=== PATIENT | female | born 1985 | race Caucasian/White ===

== ENCOUNTER 2019-12-06 06:13 | Emergency (ER) | payer SELFPAY ==
[2019-12-06] MEDS ORDERED: Acetaminophen/Codeine 30-300mg Tablet ONE (07:49)
[2019-12-06] MEDS ORDERED: Neomycin/Polymyxin/HC Otic Solution 10 ML BOT ONE (07:52)
== END 2019-12-06 07:58 | disposition home or self-care (01) ==
LOC: ERS 06:13
DX: H60.91 Unspecified otitis externa, right ear (principal); F17.200 Nicotine dependence, unspecified, uncomplicated; D64.9 Anemia, unspecified
CPT/HCPCS: 99283

== ENCOUNTER 2019-12-06 16:37 | Emergency (ER) | payer SELFPAY ==
[2019-12-06] MEDS ORDERED: methylPREDNISolone Sod Succ/PF 125 MG/2 ML VIAL ONE (16:54)
[2019-12-06] MEDS ORDERED: Famotidine/PF 20 mg/2ml Vial ONE (16:54)
== END 2019-12-06 19:05 | disposition home or self-care (01) ==
LOC: ERS 16:37
DX: L50.0 Allergic urticaria (principal); T36.8X5A Adverse effect of other systemic antibiotics, initial encounter; D64.9 Anemia, unspecified; F17.200 Nicotine dependence, unspecified, uncomplicated
CPT/HCPCS: J2930; S0028

== ENCOUNTER 2019-12-07 22:33 | Emergency (ER) | payer SELFPAY ==
[2019-12-07] MEDS ORDERED: Ibuprofen 800 MG TAB ONE (23:15)
[2019-12-07] MEDS ORDERED: NEOMYCIN-POLYMYXIN-HC EAR SUSP 200 DROP/10 ML BOT R EAR SCH (23:30)
== END 2019-12-07 23:44 | disposition home or self-care (01) ==
LOC: ERS 22:33
DX: H60.91 Unspecified otitis externa, right ear (principal); D64.9 Anemia, unspecified; F17.200 Nicotine dependence, unspecified, uncomplicated